=== PATIENT | female | born 1980 | race Caucasian/White ===

== ENCOUNTER → 2019-01-16 | Day surgery (SDC) | payer OTHER ==
[2019-01-15 09:10] VITALS: BMI 23.3
[~2019-01-16] MED LIST: SODIUM CHLORIDE 0.9% 1,000 ML IV SCH
[2019-01-16 09:51] VITALS: BP 136/85; PULSE 104; RESP 18; TEMP 97.8
--- NOTE | 2019-01-16 14:00 | P.PCN ---
Preoperative Diagnosis: Diagnosis Palpitations and dizzy spells Baseline 12-lead ECG shows sinus mechanism normal [place] narrow QRS normal ST segments Tilt table test per protocol Baseline heart rate 75 beats a minute, Baseline blood pressure 142/91 mmHg Patient was tilted upright at an angle of 70 per protocol there was an increase in heart rate 90 beats a minute. 219 beats a minute within the first 10 minutes. Patient remained in sinus tachycardia to the procedure and when she was laid supine at the end of the procedure heart rate normalized blood pressure remained stable Impression Postural tachycardia syndrome Normal 12-lead EKG
== END ==
LOC: CATHEP 09:21
PROVIDERS: ATTEND Internal Medicine Clinical Cardiac Electrophysiology
DX: I49.8 Other specified cardiac arrhythmias (principal); I73.00 Raynaud's syndrome without gangrene; Z79.899 Other long term (current) drug therapy
CPT/HCPCS: 81025; 93660